=== PATIENT | female | born 1990 | race Hispanic/Latino ===

== ENCOUNTER 2021-04-26 23:27 | Emergency (ER) | payer OTHER ==
--- OUTSIDE RECORDS SUMMARY | 2021-04-26 23:30 | XMS REPORT | Continuity of Care Document ---
:1990 Author Organization [facility] t Address [facility] [place] [address] Care Team Providers Name Role Phone Tod CAGLE Attending Clinician Tod CAGLE Admitting Clinician Problems This patient has no known problems. Allergies, Adverse Reactions, Alerts This patient has no known allergies or adverse reactions. Medications This patient has no known medications. Procedures This patient has no known procedures. Encounters Start End Encounter Admission Attending Care Care Encounter Source Date/Time Date/Time Type Type Clinicians Facility Department ID 2021-02-03 2021-02-03 [facility] Barbara Baron [facility] [id number] 15:59:00 19:00:00 Encounter Keagan [id number] Naila [id number] [place] [id number] Results This patient has no known results.
--- NOTE | 2021-04-27 00:54 | EDPHYS ---
Physician Documentation [facility] Name: Earline Betancourt Age: 30 yrs Sex: Female : 1990 Arrival Date: 04/27/2021 Time: 00:21 Bed 29 Private MD: ED Physician Easton Palacios HPI: 04/27 00:50 This 30 yrs old Female presents to ER via Unassigned with complaints of Cough. magno 00:50 The patient or guardian reports airway noise, cough, that is intermittent. Onset: The magno symptoms/episode began/occurred 3 day(s) ago. Severity of symptoms: At their worst the symptoms were mild, in the emergency department the symptoms are unchanged. Modifying factors: The symptoms are alleviated by nothing, the symptoms are aggravated by exertion. Associated signs and symptoms: The patient has no apparent associated signs or symptoms. The patient has not experienced similar symptoms in the past. 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 - Social history:: Smoking status: Patient reports the use of cigarette tobacco products, denies chronic smoking, but will smoke occasionally. - Family history:: not pertinent. ROS: 00:50 Constitutional: Negative for fever, chills, and weight loss, Eyes: Negative for injury, magno pain, redness, and discharge, Neck: Negative for injury, pain, and swelling, Cardiovascular: Negative for chest pain, palpitations, and edema, Respiratory: Negative for shortness of breath, cough, wheezing, and pleuritic chest pain, Abdomen/GI: Negative for abdominal pain, nausea, vomiting, diarrhea, and constipation, Back: Negative for injury and pain, : Negative for injury, bleeding, discharge, and swelling, MS/Extremity: Negative for injury and deformity, Skin: Negative for injury, rash, and discoloration, Neuro: Negative for headache, weakness, numbness, tingling, and seizure, Psych: Negative for depression, anxiety, suicide ideation, homicidal ideation, and hallucinations, Allergy/Immunology: Negative for hives, rash, and allergies, Endocrine: Negative for neck swelling, polydipsia, polyuria, polyphagia, and marked weight changes, Hematologic/Lymphatic: Negative for swollen nodes, abnormal bleeding, and unusual bruising. 00:50 ENT: Positive for rhinorrhea, sinus congestion. Exam: 00:50 Constitutional: This is a well developed, well nourished patient who is awake, alert, magno and in no acute distress. Head/Face: Normocephalic, atraumatic. Eyes: Pupils equal round and reactive to light, extra-ocular motions intact. Lids and lashes normal. Conjunctiva and sclera are non-icteric and not injected. Cornea within normal limits. Periorbital areas with no swelling, redness, or edema. ENT: Nares patent. No nasal discharge, no septal abnormalities noted. Tympanic membranes are normal and external auditory canals are clear. Oropharynx with no redness, swelling, or masses, exudates, or evidence of obstruction, uvula midline. Mucous membranes moist. Neck: Trachea midline, no thyromegaly or masses palpated, and no cervical lymphadenopathy. Supple, full range of motion without nuchal rigidity, or vertebral point tenderness. No Meningismus. Chest/axilla: Normal chest wall appearance and motion. Nontender with no deformity. No lesions are appreciated. Cardiovascular: Regular rate and rhythm with a normal S1 and S2. No gallops, murmurs, or rubs. Normal PMI, no JVD. No pulse deficits. Respiratory: Lungs have equal breath sounds bilaterally, clear to auscultation and percussion. No rales, rhonchi or wheezes noted. No increased work of breathing, no retractions or nasal flaring. Abdomen/GI: Soft, non-tender, with normal bowel sounds. No distension or tympany. No guarding or rebound. No evidence of tenderness throughout. Back: No spinal tenderness. No costovertebral tenderness. Full range of motion. Female : Normal external genitalia. Skin: Warm, dry with normal turgor. Normal color with no rashes, no lesions, and no evidence of cellulitis. MS/ Extremity: Pulses equal, no cyanosis. Neurovascular intact. Full, normal range of motion. Neuro: Awake and alert, GCS 15, oriented to person, place, time, and situation. Cranial nerves II-XII grossly intact. Motor strength 5/5 in all extremities. Sensory grossly intact. Cerebellar exam normal. Normal gait. Psych: Awake, alert, with orientation to person, place and time. Behavior, mood, and affect are within normal limits. Vital Signs: 00:25 BP 118 / 69; Pulse 69; Resp 16 S; Temp 98.1(O); Pulse Ox 99% on R/A; Weight 61.69 kg bb (R); Height 5 ft. 5 in. (165.10 cm) (R); Pain 0/10; 00:25 Body Mass Index 22.63 (61.69 kg, 165.10 cm) bb MDM: 00:23 Patient medically screened. [facility] 00:51 Differential diagnosis: sinusitis. Differential Diagnosis: Bronchitis Influenza Upper magno Respiratory Infection Sinusitis Pharyngitis Otitis Media Viral Syndrome Pneumonia. Data reviewed: vital signs, nurses notes. 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 Counseling: I had a detailed discussion with the patient and/or guardian regarding: the historical points, exam findings, and any diagnostic results supporting the discharge/admit diagnosis, lab results. Administered Medications: No medications were administered Disposition: 04/27/21 00:53 Discharged to Home. Impression: Cough, Acute upper respiratory infection, unspecified. - Condition is Stable. - Discharge Instructions: Upper Respiratory Infection, Adult, Cool Mist Vaporizer, Cough, Adult. - Prescriptions for Mandy- D 12 Hour 60-120 mg Oral Tablet Sustained Release 12 hr - take 1 tablet by ORAL route every 12 hours As needed; 20 tablet. Medrol (Gustavo) 4 mg Oral Tablets, Dose Pack - take 1 tablet by ORAL route as directed - follow package instructions; 1 packet. - Medication Reconciliation Form, Thank You Letter, Antibiotic Education, Prescription Opioid Use form. - Follow up: Private Physician; When: 2 - 3 days; Reason: Recheck today's complaints, Continuance of care, Re-evaluation by your physician. - Problem is new. - Symptoms have improved. Signatures: Easton Palacios MD MD cha Ballard, Brenda, RN RN bb Corrections: (The following items were deleted from the chart) 01:46 00:53 04/27/2021 00:53 Discharged to Home. Impression: Cough; Acute upper respiratory bb infection, unspecified. Condition is Stable. Forms are Medication Reconciliation Form, Thank You Letter, Antibiotic Education, Prescription Opioid Use. Follow up: Private Physician; When: 2 - 3 days; Reason: Recheck today's complaints, Continuance of care, Re-evaluation by your physician. Problem is new. Symptoms have improved. magno
--- NOTE | 2021-04-27 01:46 | ER ---
Nurse's Notes [facility] Name: Earline Betancourt Age: 30 yrs Sex: Female : 1990 Arrival Date: 04/27/2021 Time: 00:21 Bed 29 Private MD: Diagnosis: Cough;Acute upper respiratory infection, unspecified Presentation: 04/27 00:25 Chief complaint: Patient states: she has congestion and nausea which started today. bb Coronavirus screen: At this time, the client does not indicate any symptoms associated with coronavirus-19. Ebola Screen: No symptoms or risks identified at this time. Initial Sepsis Screen: Does the patient meet any 2 criteria? No. Patient's initial sepsis screen is negative. Does the patient have a suspected source of infection? No. Patient's initial sepsis screen is negative. Risk Assessment: Do you want to hurt yourself or someone else? Patient reports no desire to harm self or others. Onset of symptoms was April 26, 2021. 00:25 Method Of Arrival: Ambulatory bb 00:25 Acuity: BRET 5 bb Triage Assessment: 00:25 General: Appears in no apparent distress. Behavior is calm, cooperative. Pain: Denies bb pain. Neuro: Level of Consciousness is awake, alert, obeys commands, Oriented to person, place, time, situation. Cardiovascular: Heart tones S1 S2 present Capillary refill < 3 seconds Patient's skin is warm and dry. Respiratory: Respiratory effort is even, unlabored, Respiratory pattern is regular, Breath sounds are clear bilaterally. GI: Abdomen is round non-distended, Bowel sounds present X 4 quads. Abd is soft and non tender X 4 quads. Derm: Skin is pink, warm \T\ dry. Musculoskeletal: Circulation, motion, and sensation intact. 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 - Social history:: Smoking status: Patient reports the use of cigarette tobacco products, denies chronic smoking, but will smoke occasionally. - Family history:: not pertinent. Screenin:25 Abuse screen: Denies threats or abuse. Nutritional screening: No deficits noted. bb Tuberculosis screening: No symptoms or risk factors identified. Fall Risk None identified. Assessment: 00:25 Reassessment: No changes from previously documented assessment. see triage assessment. bb 01:45 Reassessment: Patient is alert, oriented x 3, equal unlabored respirations, skin bb warm/dry/pink. pt verbalized understanding of and agrees to plan of care discharge instructions given pt ambulated with steady gait to exit accompanied by family. Vital Signs: 00:25 BP 118 / 69; Pulse 69; Resp 16 S; Temp 98.1(O); Pulse Ox 99% on R/A; Weight 61.69 kg bb (R); Height 5 ft. 5 in. (165.10 cm) (R); Pain 0/10; 00:25 Body Mass Index 22.63 (61.69 kg, 165.10 cm) juan jose ED Course: 00:21 Patient arrived in ED. bb 00:23 Easton Palacios MD is Attending Physician. [facility] 00:25 Arm band placed on Patient placed in an exam room, on a stretcher. Family accompanied bb patient. 00:25 Patient has correct armband on for positive identification. bb 00:25 No provider procedures requiring assistance completed. Patient did not have IV access bb during this emergency room visit. 01:22 Rosie Leonard, RN is Primary Nurse. bb 01:24 Triage completed. bb Administered Medications: No medications were administered Outcome: 00:53 Discharge ordered by . magno 01:45 Discharged to home ambulatory, with family. bb 01:45 Condition: stable 01:45 Discharge instructions given to patient, Instructed on discharge instructions, follow up and referral plans. medication usage, Demonstrated understanding of instructions, follow-up care, medications, Prescriptions given X 2. 01:46 Patient left the ED. bb Signatures: Easton Palacios MD MD cha Ballard, Brenda, RN RN juan jose
[2021-04-27 01:58] VITALS: BP 118/69; TEMP 98.1; O2SAT 99
== END 2021-04-27 01:46 | disposition home or self-care (01) ==
LOC: ER 23:27
DX: J06.9 Acute upper respiratory infection, unspecified (principal); F17.210 Nicotine dependence, cigarettes, uncomplicated
CPT/HCPCS: 99282

== ENCOUNTER 2021-05-08 09:26 | Emergency (ER) | payer OTHER ==
--- OUTSIDE RECORDS SUMMARY | 2021-05-08 09:29 | XMS REPORT | Continuity of Care Document ---
:1990 Author Organization [facility] t Address [facility] [place] [address] Care Team Providers Name Role Phone Tod [...] Type Clinicians Facility Department ID 2021-02-03 2021-02-03 [facility] Barbara Baron [facility] [id number] 15:59:00 19:00:00 Encounter Keagan [id number] Naila [id number] [place] [id number] Results This patient has no known results.
[2021-05-08 09:51] LABS: Urine Blood 2+ (Negative); Urine Glucose Negative (Negative); Urine Protein 1+ (Negative); Urine Specific Gravity 1.025 (1.005-1.030); Urine pH 6.5 (5.0-7.0)
[2021-05-08 10:05] LABS: Urine Bacteria 20-50 /HPF (<20)
--- NOTE | 2021-05-08 10:08 | ER ---
Nurse's Notes [facility] Name: Earline Betancourt Age: 30 yrs Sex: Female : 1990 Arrival Date: 05/08/2021 Time: 09:29 Bed 15 Private MD: Diagnosis: Acute cystitis Presentation: 05/08 09:36 Chief complaint: Patient states: States she has been getting frequent UTI's recently. ll1 Has dysuria, oliguria with frequency for 5 days. No fever. Some diarrhea. Urine is cloudy and has a foul odor. Coronavirus screen: Client denies travel out of the [place] in the last 14 days. At this time, the client does not indicate any symptoms associated with coronavirus-19. Ebola Screen: Patient denies travel to an Ebola-affected area in the 21 days before illness onset. Initial Sepsis Screen: Does the patient meet any 2 criteria? No. Patient's initial sepsis screen is negative. Does the patient have a suspected source of infection? Yes: Dysuria/Frequency/Urgency/UTI. Risk Assessment: Do you want to hurt yourself or someone else? Patient reports no desire to harm self or others. Onset of symptoms was May 04, 2021. 09:36 Method Of Arrival: Ambulatory ll1 09:36 Acuity: BRET 4 ll1 Historical: - Allergies: 09:36 No Known Allergies; ll1 - PMHx: 09:36 Anemia; ll1 - PSHx: 09:36 None; ll1 - Immunization history:: Flu vaccine is up to date. - Social history:: Smoking status: Patient reports the use of cigarette tobacco products, denies chronic smoking, but will smoke occasionally. Screenin:42 Abuse screen: Denies threats or abuse. Denies injuries from another. Nutritional ph screening: No deficits noted. Tuberculosis screening: No symptoms or risk factors identified. Fall Risk None identified. Assessment: 09:42 General: Appears in no apparent distress. comfortable, slender, well groomed, Behavior ph is calm, cooperative, appropriate for age, Denies fever. Pain: Complains of pain in groin. Neuro: Level of Consciousness is awake, alert, obeys commands, Oriented to person, place, time, situation. Cardiovascular: Capillary refill < 3 seconds in bilateral fingers Patient's skin is warm and dry. Respiratory: Airway is patent Respiratory effort is even, unlabored. GI: No signs and/or symptoms were reported involving the gastrointestinal system. : Reports burning with urination, pain in suprapubic area urinary frequency, states that urine is cloudy and foul smelling. Derm: Skin is intact, is healthy with good turgor, Skin is pink, warm \T\ dry. Musculoskeletal: Circulation, motion, and sensation intact. Range of motion: intact in all extremities. 10:24 Reassessment: Patient appears in no apparent distress at this time. Patient and/or ph family updated on plan of care and expected duration. Pain level reassessed. Patient is alert, oriented x 3, equal unlabored respirations, skin warm/dry/pink. Pt d/c home w/ prescription antibiotics and work note. Vital Signs: 09:36 Weight 58.97 kg; Height 5 ft. 5 in. (165.10 cm); Pain 3/10; ll1 09:44 BP 113 / 61; Pulse 98; Resp 18; Pulse Ox 99% on R/A; ph 10:24 BP 107 / 68; Pulse 87; Resp 18; Temp 98.1; Pulse Ox 100% on R/A; ph 09:36 Body Mass Index 21.63 (58.97 kg, 165.10 cm) ll1 ED Course: 09:29 Patient arrived in ED. wm 09:35 Arm band placed on Patient placed in an exam room, on a stretcher. ll1 09:36 Oliver Pace PA is PHCP. jr8 09:36 Carlos Eduardo Daniels MD is Attending Physician. jr8 09:37 Rosey Rae, ANAMIKA is Primary Nurse. ph 09:38 Triage completed. ll1 09:42 Patient has correct armband on for positive identification. Placed in gown. Bed in low ph position. Call light in reach. Side rails up X 1. Pulse ox on. NIBP on. Door closed. Noise minimized. Warm blanket given. 09:54 Urine Microscopic Only Sent. 5 10:24 No provider procedures requiring assistance completed. Patient did not have IV access ph during this emergency room visit. Administered Medications: No medications were administered Outcome: 10:06 Discharge ordered by . jr8 10:24 Discharged to home ambulatory. ph 10:24 Condition: good 10:24 Discharge instructions given to patient, Instructed on discharge instructions, follow up and referral plans. medication usage, Demonstrated understanding of instructions, follow-up care, medications, Prescriptions given X 1. 10:25 Patient left the ED. ph Signatures: Oliver Pace PA PA jr8 Rosey Rae, RN RN ph Madelin Livingston [facility] Yonathan Gooden RN RN 1 Saloni Guevara
--- NOTE | 2021-05-08 10:08 | EDPHYS ---
Physician Documentation [facility] Name: Earline Betancourt Age: 30 yrs Sex: Female : 1990 Arrival Date: 05/08/2021 Time: 09:29 Bed 15 Private MD: ED Physician Carlos Eduardo Daniels HPI: 05/08 09:59 This 30 yrs old Female presents to ER via Ambulatory with complaints of Pain jr8 With Urination. 09:59 The patient presents with urinary symptoms, dysuria, frequency, urgency. Onset: The jr8 symptoms/episode began/occurred acutely, 2 day(s) ago. Modifying factors: The symptoms are alleviated by nothing, the symptoms are aggravated by urinating. Associated signs and symptoms: The patient has no apparent associated signs or symptoms. Severity of symptoms: At their worst the symptoms were mild, in the emergency department the symptoms are unchanged. The patient has experienced similar episodes in the past, a few times. The patient has not recently seen a physician. Historical: - Allergies: 09:36 No Known Allergies; ll1 - PMHx: 09:36 Anemia; ll1 - PSHx: 09:36 None; ll1 - Immunization history:: Flu vaccine is up to date. - Social history:: Smoking status: Patient reports the use of cigarette tobacco products, denies chronic smoking, but will smoke occasionally. ROS: 09:59 Constitutional: Negative for fever, chills, and weight loss, Abdomen/GI: Negative for jr8 abdominal pain, nausea, vomiting, diarrhea, and constipation, Back: Negative for injury and pain. 09:59 : Positive for urinary symptoms, burning with urination. 09:59 All other systems are negative. Exam: 09:59 Constitutional: This is a well developed, well nourished patient who is awake, alert, jr8 and in no acute distress. Cardiovascular: Regular rate and rhythm with a normal S1 and S2. No gallops, murmurs, or rubs. Normal PMI, no JVD. No pulse deficits. Respiratory: Lungs have equal breath sounds bilaterally, clear to auscultation and percussion. No rales, rhonchi or wheezes noted. No increased work of breathing, no retractions or nasal flaring. Abdomen/GI: Soft with mild tenderness over the suprapubic region. Normal bowel sounds. No distension or tympany. No guarding or rebound. No evidence of tenderness throughout. Back: No spinal tenderness. No costovertebral tenderness. Full range of motion. Skin: Warm, dry with normal turgor. Normal color with no rashes, no lesions, and no evidence of cellulitis. MS/ Extremity: Pulses equal, no cyanosis. Neurovascular intact. Full, normal range of motion. Neuro: Awake and alert, GCS 15, oriented to person, place, time, and situation. Motor strength 5/5 in all extremities. Sensory grossly intact. Vital Signs: 09:36 Weight 58.97 kg; Height 5 ft. 5 in. (165.10 cm); Pain 3/10; ll1 09:44 BP 113 / 61; Pulse 98; Resp 18; Pulse Ox 99% on R/A; ph 10:24 BP 107 / 68; Pulse 87; Resp 18; Temp 98.1; Pulse Ox 100% on R/A; ph 09:36 Body Mass Index 21.63 (58.97 kg, 165.10 cm) ll1 MDM: 09:36 Patient medically screened. 8 10:06 Data reviewed: vital signs, nurses notes, lab test result(s), and as a result, I will [facility] discharge patient. Data interpreted: Pulse oximetry: on room air is 99 %. Interpretation: normal. Counseling: I had a detailed discussion with the patient and/or guardian regarding: the historical points, exam findings, and any diagnostic results supporting the discharge/admit diagnosis, lab results, the need for outpatient follow up, a family practitioner, to return to the emergency department if symptoms worsen or persist or if there are any questions or concerns that arise at home. 05/08 09:36 Order name: Urine Microscopic Only [facility] 05/08 09:51 Order name: Urine Dipstick-Ancillary; Complete Time: 09:59 EDMS 05/08 09:36 Order name: Urine Test (obtain specimen); Complete Time: 09:44 8 05/08 09:36 Order name: Urine Dipstick-Ancillary (obtain specimen); Complete Time: 09:44 [facility] 05/08 10:02 Order name: Urine --Ancillary (enter results) 1 05/08 10:05 Order name: Urine Microscopic Only; Complete Time: 10:06 EDMS Administered Medications: No medications were administered Disposition: 10:29 Co-signature as Attending Physician, Carlos Eduardo Daniels MD I agree with the assessment and kdr plan of care. Disposition: 05/08/21 10:06 Discharged to Home. Impression: Acute cystitis. - Condition is Stable. - Prescriptions for Augmentin 875- 125 mg Oral Tablet - take 1 tablet by ORAL route every 12 hours for 7 days; 14 tablet. - Medication Reconciliation Form, Thank You Letter, Antibiotic Education, Prescription Opioid Use, Work release form form. - Follow up: Private Physician; When: 2 - 3 days; Reason: Recheck today's complaints, Continuance of care, Re-evaluation by your physician. - Problem is new. - Symptoms have improved. Signatures: Dispatcher [employer] EDOR Carlos Eduardo Daniels MD MD kdr Roszak, Josh, PA PA jr8 Rosey Rae RN RN ph Yonathan Gooden RN RN ll1 Corrections: (The following items were deleted from the chart) 10:25 10:06 05/08/2021 10:06 Discharged to Home. Impression: Acute cystitis. Condition is ph Stable. Forms are Medication Reconciliation Form, Thank You Letter, Antibiotic Education, Prescription Opioid Use. Follow up: Private Physician; When: 2 - 3 days; Reason: Recheck today's complaints, Continuance of care, Re-evaluation by your physician. Problem is new. Symptoms have improved. jr8
[2021-05-08 11:03] VITALS: BP 107/68; TEMP 98.1; O2SAT 100
[2021-05-08 11:03] LABS: Urine Specific Gravity/Preg 1.025 (1.005-1.030)
== END 2021-05-08 10:25 | disposition home or self-care (01) ==
LOC: ER 09:26
DX: N30.00 Acute cystitis without hematuria (principal); F17.210 Nicotine dependence, cigarettes, uncomplicated
CPT/HCPCS: 81003; 81015; 81025; 87086; 87088; 99283